=== PATIENT | female | born 1985 | race Caucasian/White ===

== ENCOUNTER 2018-03-10 09:21 | Emergency (ER) | payer OTHER ==
[~2018-03-10] VITALS: Ht 162.6 cm; Wt 68.0 kg
[2018-03-10] MEDS ORDERED: NORCO 5-325 TA1 EACH PO (09:57)
[2018-03-10] MEDS ORDERED: FLEXERIL PO (09:57)
[2018-03-10 10:04] VITALS: BP 159/84
== END 2018-03-10 10:04 | disposition home or self-care (01) ==
LOC: M.ERS 09:21
DX: S76.012A Strain of muscle, fascia and tendon of left hip, initial encounter (principal); Z88.0 Allergy status to penicillin; Z90.49 Acquired absence of other specified parts of digestive tract; X50.1XXA Overexertion from prolonged static or awkward postures, initial encounter; Y92.89 Other specified places as the place of occurrence of the external cause; Y93.41 Activity, dancing; Y99.8 Other external cause status